=== PATIENT | male | born 1945 | race African-American/Black ===

== ENCOUNTER 2022-09-23 16:29 | Inpatient (IN) | payer MEDICARE, OTHER ==
[~2022-09-23] VITALS: Ht 180.3 cm; Wt 71.2 kg
--- NOTE | 2022-09-23 16:41 | NUR ---
Vikash valdivia in [facility] - 09/23/22 at 1651 by DELGADO [email or web address], medical screening exam in progress
--- NOTE | 2022-09-23 16:52 | NUR ---
[email or web address], medical screening exam in progress.
[2022-09-23] MEDS ORDERED: QUET25TA PO (16:53)
[2022-09-23] MEDS ORDERED: AMLO-212 PO (16:53)
[2022-09-23] MEDS ORDERED: ESCI10TA PO (16:53)
[2022-09-23] MEDS ORDERED: DONE10TA44 PO (16:53)
--- NOTE | 2022-09-23 17:14 | NUR ---
Water to drink was given, pending urine specimen at this time. Patient's daughter Donna is at bedside.
[2022-09-23 17:42] LABS: HEMATOCRIT 40.2 % (36.7-47.1); MEAN CORPUSCULAR HEMOGLOBIN 29.7 uug (23.8-33.4); MEAN CORPUSCULAR VOLUME 88.6 fL (73.0-96.2); PLATELET COUNT (AUTO) 155 K/uL (152-348)
[2022-09-23 17:45] LABS: CARBON DIOXIDE 30 mmol/L (21-32); CHLORIDE 107 mmol/L (98-107); CREATININE 1.5 mg/dL (0.6-1.3); GLUCOSE 104 mg/dL (74-106); POTASSIUM 3.4 mmol/L (3.5-5.1); UREA NITROGEN, BLOOD 21 mg/dL (7-18)
[2022-09-23 17:49] LABS: ACETAMINOPHEN < 2.0 ug/mL (10-30)
[2022-09-23 17:50] LABS: ALANINE AMINOTRANSFERASE 23 U/L (16-63); ALKALINE PHOSPHATASE 76 U/L (50-136); ASPARTATE AMINOTRANSFERASE 20 U/L (15-37); TOTAL PROTEIN, SERUM 6.7 g/dL (6.4-8.2)
[2022-09-23 17:52] LABS: ETHANOL < 3 MG/DL (0-0)
--- NOTE | 2022-09-23 18:35 | NUR ---
2 RNs attempted straight urine catheterization but the czech 14 urine straight catheter is too flexible. Silicone urine catheter inserted by SUSHMA Cardenas, pending urine specimen at this time. Hot dinner tray was provided.
[2022-09-23] MEDS ORDERED: IV NORMAL SALINE 1000 ML BAG IV ONE ×2 (18:45→20:00)
--- NOTE | 2022-09-23 18:47 | NUR ---
Patient is eating dinner with very good appetite. IV line will be started after patient finishes eating dinner.
--- NOTE | 2022-09-23 19:11 | NUR ---
insurance processor Patrcie at bedside, psych evaluation in progress.
--- NOTE | 2022-09-23 19:20 | NUR ---
Patient placed on 51/50 hold by Patrice Houston for grave disability and danger to self
[2022-09-23 20:10] LABS: *BLOOD, URINE 2+ (NEGATIVE); *COLOR,URINE YELLOW (YELLOW); *KETONES,URINE TRACE (NEGATIVE); LEUKOCYTE ESTERASE ,URINE NEGATIVE (NEGATIVE); NITRITE, URINE NEGATIVE (NEGATIVE); UGLUCOSE NEGATIVE (NEGATIVE)
[2022-09-23 20:12] LABS: *BILIRUBIN,URIN 1+ (NEGATIVE); *CLARITY,URINE HZY (CLEAR)
--- NOTE | 2022-09-23 20:16 | NUR ---
Patient assigned to room 145C
[2022-09-23 20:19] LABS: *AMPHETAMINE, URINE NEGATIVE (NEGATIVE); *CANNABINOID, URINE NEGATIVE (NEGATIVE); *COCCAINE, URINE NEGATIVE (NEGATIVE); *PHENCYCLIDINE SCREEN,URINE NEGATIVE (NEGATIVE)
[2022-09-23 20:34] LABS: BACTERIA,URINE FEW /HPF (NONE SEEN); SQUAMOUS EPITHELIAL CELL,UR NONE SEEN /HPF (NONE SEEN); WBC,URINE 0-3 /HPF (0-3)
--- NOTE | 2022-09-23 20:47 | NUR ---
report given to Kunal PUTNAM
--- NOTE | 2022-09-23 21:10 | NUR ---
Pt. admitted to [facility] room 145C , under care of Dr. Faye Belongs List completed Kunal SCHMIDT and Jarret RN aware of patient's arrival
[2022-09-23 21:15] VITALS: BP 157/103
[2022-09-23] MEDS: LORAZEPAM 1 MG TABLET PO PRN (22:48)
[2022-09-23] MEDS ORDERED: ACETAMINOPHEN 325 MG TABLET PO PRN (23:00)
[2022-09-23] MEDS ORDERED: MAG HYDROX/AL HYDROX/SIMETH 30 ML LIQUID UDC PO PRN (23:00)
[2022-09-23] MEDS ORDERED: BLOOD SUGAR DIAGNOSTIC 1 EACH STRIP VI ONE (23:00)
--- NOTE | 2022-09-23 23:48 | NUR ---
Admission Note: Received 77 y/o male on a 5150 hold d/t being GD and a DTS, brought in via ER staff on . Patient was on the streets after being found missing by his daughter whom lives with him. Patient has a history of wandering away from his home and getting lost/not being able to find his way back home. Patient was also becoming aggressively angered with those he ran into on the streets trying to help him. Per daughter's statement, pt has also been unable to care for himself and is refusing care from his daughter/family. He will be in the care of psychiatrist Neyda, and State Farm Agent Apple. Upon face to face assessment, pt was AOx1, confused, disoriented, forgetful, and unkept. Although calm and cooperative, pt was a poor historian, had poor concentration, had extreme difficulty following directions, and needed constant reminding, re-direction and reassurance. He was self-ambulatory x1 minimal assist for safety. Patient was given his advisement, patient's handbook, and was left at on his bedside table. Pt was briefly given a tour of the unit and it's rules. Contraband and other belongings were collected for safe keeping. Pertaining safety measures implemented.
[2022-09-24] MEDS: CLONIDINE HCL 0.1 MG TABLET PO PRN (04:32)
[2022-09-24 07:52] LABS: CREATININE 1.2 mg/dL (0.6-1.3); POTASSIUM 3.3 mmol/L (3.5-5.1)
[2022-09-24 08:03] VITALS: BP 102/72
[2022-09-24] MEDS: AMLODIPINE 5 MG TABLET PO SCH (09:41)
[2022-09-24] MEDS: ESCITALOPRAM OXALATE 10 MG TABLET PO SCH (11:17)
[2022-09-24] MEDS: MEMANTINE HCL 5 MG TABLET PO SCH ×2 (11:17→20:10)
[2022-09-24] MEDS ORDERED: POTASSIUM CHLORIDE 20 MEQ TAB.PRT.SR PO ONE (12:00)
--- NOTE | 2022-09-24 12:47 | NUR ---
SHIFT NOTE: PT IS ALERT AND ORIENTED X3 AMBULATORY WITH OBSERVATION NO SIGNS OF DISTRESS NOTED. OBSERVED PT FOR AWOL RISK. PT IS COMPLIANT WITH MEDICATION DR JOSEPH ORDERED POTASSIUM 20MEQ PO POTASSIUM IS LOW 3.1 NO SIGNS OF RESPIRATORY DISTRESS NOTED. NO ADVERSE REACTION FROM MEDICATION NOTED. PT EATING CARE OF HIMSELF. Addendum: 09/24/22 at 1255 by [address] [facility] INPATIENT RN28 RN PT NEEDS ASSISTANCE WITH ADL BUT NOT WITH FEEDING HIMSELF.
--- NOTE | 2022-09-24 12:56 | NUR ---
PT IS ON A 72 HOUR HOLD WILL CONTINUE TO MONITOR FOR SAFETY. Addendum: 09/24/22 at 1257 by REGISTRY [facility] INPATIENT RN28 RN 72 HOUR HOLD FOR GD AND DTS.
--- NOTE | 2022-09-24 14:21 | NUR ---
Firearms Report: Washery Engineer completed and submitted a [employer] firearms report for 5150 a danger to himself and grave disability certifications. A copy of report has been placed in patient chart.
--- NOTE | 2022-09-24 14:21 | NUR ---
CHAKA Initial Discharge Note: Pt currently resides at home with his daughter/DPOA, Donna ([phone]) located at [address] [place] [address]. Donna stated that she can no longer care for the pt at home. Donna informed this SW that she is actively looking for a intermediate facility in [place]. Donna is also agreeable with this SW and the psychiatrist's intermediate facility recommendations for continuation of care. CHAKA will continue to work with pt, Donna and to ensure a safe and proper discharge plan.
--- NOTE | 2022-09-24 14:22 | NUR ---
SW Family/DPOA Contact: SW spoke with pt's daughter/DPOA, Donna ([phone]) who resides at [address] [place] [address]. Donna stated that she can no longer care for the pt at home. Donna informed this SW that she is actively looking for a chcf facility in [place]. Donna is also agreeable with this SW and the psychiatrist's chcf facility recommendations for continuation of care.
[2022-09-24 16:34] VITALS: BP 129/78
[2022-09-24 19:58] VITALS: BP 101/55
[2022-09-24] MEDS: DONEPEZIL 5 MG TABLET PO SCH (20:10)
[2022-09-24] MEDS: QUETIAPINE FUMARATE 25 MG TABLET PO SCH (20:10)
--- NOTE | 2022-09-24 20:43 | NUR ---
GPS: Pt.is confused,forgetful and disoriented. Insight and judgment is impaired. Took bedtime meds.without any issues. Safe environment provided.Re-directed prn.
--- NOTE | 2022-09-25 06:15 | NUR ---
GPS: Pt.slept 7 hrs.last night. Showered earlier with assistance from staff. Remains confused,disoriented and forgetful. Reality re-orientation provided prn. Safety checks Q15 minutes for safety. Needs attended. Will continue to monitor.
[2022-09-25 07:47] LABS: HEMATOCRIT 38.2 % (36.7-47.1); MEAN CORPUSCULAR HEMOGLOBIN 30.5 uug (23.8-33.4); MEAN CORPUSCULAR VOLUME 88.7 fL (73.0-96.2); PLATELET COUNT (AUTO) 142 K/uL (152-348)
[2022-09-25 08:00] VITALS: BP 105/70
[2022-09-25 08:04] LABS: BILIRUBIN,TOTAL 1.1 mg/dL (0.2-1.0); CREATININE 1.2 mg/dL (0.6-1.3); PHOSPHOROUS 2.9 mg/dL (2.5-4.9); POTASSIUM 4.2 mmol/L (3.5-5.1); TOTAL PROTEIN, SERUM 6.4 g/dL (6.4-8.2)
[2022-09-25 08:13] LABS: THYROID STIMULATING HORMONE 1.269 mIU/mL (0.358-3.740)
[2022-09-25] MEDS: ESCITALOPRAM OXALATE 10 MG TABLET PO SCH (08:47)
[2022-09-25] MEDS: MEMANTINE HCL 5 MG TABLET PO SCH ×2 (08:48→20:11)
[2022-09-25] MEDS: AMLODIPINE 5 MG TABLET PO SCH (08:48)
--- NOTE | 2022-09-25 15:10 | NUR ---
Patient is confused, wanders in the hallway, stands by the front door to leave the unit, risk for AWOL, forgetful about what he has to say, cooperative with nursing care. Patient ambulates without assistance and requires minimal assistance with ADL. Patient needs lots of redirection and prompts. Reality orientation provided. Fall and safety precautions implemented.
[2022-09-25 16:36] VITALS: BP 136/92
[2022-09-25 20:07] VITALS: BP 124/78
[2022-09-25] MEDS: DONEPEZIL 5 MG TABLET PO SCH (20:11)
[2022-09-25] MEDS: QUETIAPINE FUMARATE 25 MG TABLET PO SCH (20:11)
[2022-09-25] MEDS: ATORVASTATIN 10 MG TABLET PO SCH (20:11)
--- NOTE | 2022-09-26 06:49 | NUR ---
GPS: Remains confused,forgetful. Reality re-orientation provided. Needs frequent re-direction from staff. No aggressive behavior noted. Med.compliant. Fall/AWOL precautions observed. Pt.slept 6 hrs.last night.
[2022-09-26 08:00] VITALS: BP 138/94
[2022-09-26] MEDS: MEMANTINE HCL 5 MG TABLET PO SCH ×2 (08:46→20:35)
[2022-09-26] MEDS: ESCITALOPRAM OXALATE 10 MG TABLET PO SCH (08:47)
--- NOTE | 2022-09-26 11:27 | NUR ---
Patient walking around, stated, "I like to walk it keeps me active", patient denies SI/.HI/VH/AH, medication compliant, patient is currently free from pain or any discomforts. Emotional support provided. Fall and safety precautions implemented. Patient contract for safety.
[2022-09-26 14:06] LABS: A/G RATIO 1.1 (0.7-1.7); ALBUMIN 3.1 g/dL (2.9-4.4); ALPHA-1-GLOBULIN 0.2 g/dL (0.0-0.4); ALPHA-2-GLOBULIN 0.5 g/dL (0.4-1.0); BETA GLOBULIN 0.9 g/dL (0.7-1.3); GAMMA GLOBULIN 1.2 g/dL (0.4-1.8); GLOBULIN, TOTAL 2.7 g/dL (2.2-3.9); M-SPIKE 0.2 g/dL (Not Observed)
[2022-09-26 16:12] VITALS: BP 116/77
[2022-09-26 20:23] VITALS: BP 156/100
[2022-09-26] MEDS: LORAZEPAM 1 MG TABLET PO PRN (20:35)
[2022-09-26] MEDS: QUETIAPINE FUMARATE 25 MG TABLET PO SCH (20:35)
[2022-09-26] MEDS: DONEPEZIL 5 MG TABLET PO SCH (20:35)
[2022-09-26] MEDS: ATORVASTATIN 10 MG TABLET PO SCH (20:35)
--- NOTE | 2022-09-27 00:40 | NUR ---
AOx1, patient is overall confused and disoriented. Struggles to follow directions. Is hard to re-direct. Overall polite, but currently incapable of providing self care. Pt needs x1 or x2 assist with ambulation. Unsteady gait and balance. Fall Risk. Safety measures carried out. Will continue to monitor.
[2022-09-27 08:00] VITALS: BP 163/79
[2022-09-27] MEDS: MEMANTINE HCL 5 MG TABLET PO SCH ×2 (09:07→20:11)
[2022-09-27] MEDS: ESCITALOPRAM OXALATE 10 MG TABLET PO SCH (09:07)
--- NOTE | 2022-09-27 11:34 | NUR ---
Nursing, Confused, disoriented, wanders around, goes room to room, constantly neded redirections. Encouraged participation in her group activities, meds compliant, AWOL risk, pushing , checking doors Constantly needing reorientation . monitor needs , safety emphasized
[2022-09-27 15:55] VITALS: BP 130/97
--- NOTE | 2022-09-27 16:54 | NUR ---
Gps/Paint Spray Inspector- Patient noted making his bed, , orientation x 1-2 aware he is in the hospital but does not know the name. Calling Nurse,Nurse when needing some help. Tends to wander around , pacing around , had been redirectable , quiet.
[2022-09-27] MEDS: ATORVASTATIN 10 MG TABLET PO SCH (20:11)
[2022-09-27] MEDS: QUETIAPINE FUMARATE 25 MG TABLET PO SCH (20:11)
[2022-09-27] MEDS: DONEPEZIL 5 MG TABLET PO SCH (20:11)
[2022-09-27 21:16] VITALS: BP 137/96
[2022-09-27] MEDS: LORAZEPAM 1 MG TABLET PO PRN (21:44)
--- NOTE | 2022-09-27 21:46 | NUR ---
GPS: Pt.is anxious,confused,disoriented and disorganized. Insight and judgment is impaired. Med.compliant. No aggressive behavior noted. Safety checks done Q15 minutes and prn to ensure pt's safety and whereabouts. Denies pain. Ativan 1mg given PO for anxiety. Will monitor effectiveness.
[2022-09-28] MEDS: ZOLPIDEM 5 MG TABLET PO PRN ×2 (00:33→23:11)
[2022-09-28 07:13] VITALS: BP 107/83
[2022-09-28] MEDS: ESCITALOPRAM OXALATE 10 MG TABLET PO SCH (08:47)
[2022-09-28] MEDS: MEMANTINE HCL 5 MG TABLET PO SCH ×2 (08:47→20:55)
--- NOTE | 2022-09-28 15:22 | NUR ---
Patient is pleasantly confused, sociable, forgetful, disoriented, disorganized, intrusive going to other patient's rooms, quiet most of the time, smiley, following directions, compliant with medications. Patient is encourage to verbalize needs. Fall and safety precautions implemented.
--- NOTE | 2022-09-28 16:25 | NUR ---
Patient had [address] today, zinc plate grainer Silas Bright gave probable cause for GD only.
[2022-09-28 16:38] VITALS: BP 122/83
[2022-09-28 20:36] VITALS: BP 132/75
[2022-09-28] MEDS: DONEPEZIL 5 MG TABLET PO SCH (20:55)
[2022-09-28] MEDS: ATORVASTATIN 10 MG TABLET PO SCH (20:55)
[2022-09-28] MEDS: QUETIAPINE FUMARATE 25 MG TABLET PO SCH (20:55)
--- NOTE | 2022-09-29 04:21 | NUR ---
Received pt in Dinning room Restless Anxious, Pacing up and down dinning room and hallway, going into other pt rooms,Pt is AWOL risk, trying to open the doors to leave.Pt is confused forgetful, disoriented,disorganized and unkept appearance. Pt is compliant with medications and nursing care. Pt is redirectable and needs stand by assistance with ADLs. Pt is unable to formulate a bailable plan of care. Safety precautions put on place. Pt slept well, no distress noted continue to monitor for safety continue with treatment plan.
[2022-09-29 08:04] VITALS: BP 172/101
[2022-09-29] MEDS: MEMANTINE HCL 5 MG TABLET PO SCH ×2 (08:14→20:27)
[2022-09-29] MEDS: ESCITALOPRAM OXALATE 10 MG TABLET PO SCH (08:14)
[2022-09-29] MEDS: CLONIDINE HCL 0.1 MG TABLET PO PRN (08:15)
--- NOTE | 2022-09-29 08:30 | NUR ---
Alert oriented 2-3, calm, compliant with care and taking of medication. Independent with meal. Incontinent, assisted in changing pull-ups.
[2022-09-29 10:56] LABS: HEMATOCRIT 36.8 % (36.7-47.1); MEAN CORPUSCULAR HEMOGLOBIN 29.8 uug (23.8-33.4); MEAN CORPUSCULAR VOLUME 89.1 fL (73.0-96.2); PLATELET COUNT (AUTO) 140 K/uL (152-348)
[2022-09-29 11:09] LABS: ALANINE AMINOTRANSFERASE 17 U/L (16-63); ALKALINE PHOSPHATASE 62 U/L (50-136); ASPARTATE AMINOTRANSFERASE 13 U/L (15-37); BILIRUBIN,TOTAL 0.9 mg/dL (0.2-1.0); CARBON DIOXIDE 30 mmol/L (21-32); CHLORIDE 109 mmol/L (98-107); CREATININE 1.1 mg/dL (0.6-1.3); GLUCOSE 106 mg/dL (74-106); POTASSIUM 3.6 mmol/L (3.5-5.1); TOTAL PROTEIN, SERUM 5.8 g/dL (6.4-8.2); UREA NITROGEN, BLOOD 25 mg/dL (7-18)
--- NOTE | 2022-09-29 13:49 | NUR ---
Awake, went to the activity room, had lunch. Calm when redirected.
[2022-09-29 16:00] VITALS: BP 158/105
--- NOTE | 2022-09-29 16:00 | NUR ---
Awake, restless, ambulating in the hallway, forgetful of room, wandering to other room. Redirected. Incontinence care done. Snacks provided. Assisted to activity room to watch TV
--- NOTE | 2022-09-29 17:28 | NUR ---
Eating dinner in his room.
[2022-09-29 20:11] VITALS: BP 98/67
[2022-09-29] MEDS: QUETIAPINE FUMARATE 25 MG TABLET PO SCH (20:27)
[2022-09-29] MEDS: ATORVASTATIN 10 MG TABLET PO SCH (20:27)
[2022-09-29] MEDS: DONEPEZIL 5 MG TABLET PO SCH (20:27)
--- NOTE | 2022-09-30 05:50 | NUR ---
Received pt pacing up and down in hallway. Pt is confused, Anxious and forgetful, going into other pt rooms, Pt is AWOL risk and is constantly trying to open the doors to leave. Pt is compliant with medications, nursing care and needs assistance with ADLs. Pt needs to be constantly reminded where hi room is or he will be going into other patients room. Pt slept well without sleeping PRN. No distress noted. Continue to monitor for safety . Continue with treatment plan.
[2022-09-30 08:13] VITALS: BP 158/92
[2022-09-30] MEDS: ESCITALOPRAM OXALATE 10 MG TABLET PO SCH (08:24)
[2022-09-30] MEDS: MEMANTINE HCL 5 MG TABLET PO SCH ×2 (08:24→21:26)
--- NOTE | 2022-09-30 14:56 | NUR ---
Patient is calm, cooperative with nursing care, compliant with medications, forgetful, confused, intrusive going to peers rooms and nursing station, needs prompts and redirection, pleasant, smiley. Patient tries AWOL and stands next to the door waiting for an opportunity to get out. Patient ambulates without assistance, incontinent. Patient is encourage to vent feelings and emotions. Fall and safety precautions implemented.
[2022-09-30 16:21] VITALS: BP 138/85
[2022-09-30 20:16] VITALS: BP 152/85
[2022-09-30] MEDS: DONEPEZIL 5 MG TABLET PO SCH (21:26)
[2022-09-30] MEDS: ATORVASTATIN 10 MG TABLET PO SCH (21:26)
[2022-09-30] MEDS: LORAZEPAM 1 MG TABLET PO PRN (21:26)
[2022-09-30] MEDS: QUETIAPINE FUMARATE 25 MG TABLET PO SCH (21:26)
--- NOTE | 2022-10-01 01:46 | NUR ---
AOx1 patient is still showing difficulty following directions. Repeated explanation and education needed for patient compliance. Confused and disoriented, extra time and care is needed. Self ambulatory, yet need to wear diapers/pull-ups d/t accidental wetting and/or soiling. Safety measure implemented.
[2022-10-01 08:24] VITALS: BP 150/95
[2022-10-01] MEDS: MEMANTINE HCL 5 MG TABLET PO SCH ×2 (10:09→22:03)
[2022-10-01] MEDS: ESCITALOPRAM OXALATE 10 MG TABLET PO SCH (10:09)
--- NOTE | 2022-10-01 15:20 | NUR ---
CHAKA Family/DPOA Contact: CHAKA spoke with pt's daughter/DPOA, Donna ([phone]) who stated that she would like the pt to discharge to a SNF in [facility]. CHAKA will continue to work with Donna to help ensure pt has a safe and proper discharge plan.
[2022-10-01 16:48] VITALS: BP 129/79
--- NOTE | 2022-10-01 18:22 | NUR ---
SHIFT NOTE: RECEIVED REPORT FROM AM NURSE EVERETT PT IS ALERT AND ORIENTEDX 2-3 PT AT BREAKFAST IN ROOM BUT ATE LUNCH AND DINNER IN DINING AREA WHILE WATCHING TV. NO SIGNS OF AGGRESSION NOTED. PT SOILED PANTS AND TOOK OFF PANTS AND PUT ON TOWEL. ASSISTED PT WITH PULL UP AND DRY CLOTHES ALONG WITH SOCK AND SHOES. PT WENT BACK IN DINING AREA WATCHING TV. PT TOOK AM MEDICATION NO SIGNS OF ADVERSE REACTION NOTED. WILL CONTINUE TO MONITOR FOR SAFETY NO SIGNS OF RESPIRATORY DISTRESS NOTED. NO SIGNS OF PT WANTING TO HARM HIMSELF NOW HE KEEPS HIMSELF WELL GROOM WITH ASSISTANCE FROM NURSE AND OTHER STAFF MEMBERS.`WILL ENDORSE HS NURSE. FALL AND SAFETY MAINTAINED WILL CONTINUE TO MONITOR FOR SAFETY.
[2022-10-01 20:29] VITALS: BP 155/95
[2022-10-01] MEDS: DONEPEZIL 5 MG TABLET PO SCH (22:03)
[2022-10-01] MEDS: QUETIAPINE FUMARATE 25 MG TABLET PO SCH (22:03)
[2022-10-01] MEDS: ATORVASTATIN 10 MG TABLET PO SCH (22:03)
[2022-10-01] MEDS: LORAZEPAM 1 MG TABLET PO PRN (22:03)
--- NOTE | 2022-10-01 23:12 | NUR ---
Pt was wandering the unit aimlessly communicating with staff and other patients with flight of idea type statements. Pt still noted to have difficulty following directions even though he continues to state that he understands what this nurse and other staff is trying to communicate to him. Repeated education and assurance helps for patient to continue with being compliant with care. Mainly AOx1, at best AOx2. Safety measures carried out. Will continue to monitor.
[2022-10-02 08:08] VITALS: BP 151/85
[2022-10-02] MEDS: MEMANTINE HCL 5 MG TABLET PO SCH ×2 (08:17→20:16)
[2022-10-02] MEDS: ESCITALOPRAM OXALATE 10 MG TABLET PO SCH (08:17)
--- NOTE | 2022-10-02 14:16 | NUR ---
CHAKA Family/DPOA Contact: CHAKA spoke with pt's daughter/DPOA, Donna ([phone]) in person regarding pt's treatment and discharge plan. Donna is aware that pt does not have a discharge date yet. CHAKA is currently working on SNF placement in [facility] for pt's continuation of care plan. Donna is grateful for the help and appreciative to the team.
[2022-10-02 16:09] VITALS: BP 121/77
--- NOTE | 2022-10-02 18:16 | NUR ---
Received pt in room awake.Pt continues to be compliant with carre and medication. Pt is confused, disorganized and forgetful. pt needs maximal assistance with ADLs.Pt forgets his room number and wanders into other patients rooms . pt is redirectable and follows directions with prompting.Reassurance provided. safety precautions put in place for safety and AWOL risk. Continue to monitor for safety , continue with treatment plan.
[2022-10-02] MEDS: LORAZEPAM 1 MG TABLET PO PRN (19:55)
[2022-10-02 19:56] VITALS: BP 148/78
[2022-10-02] MEDS: ATORVASTATIN 10 MG TABLET PO SCH (20:16)
[2022-10-02] MEDS: QUETIAPINE FUMARATE 25 MG TABLET PO SCH (20:16)
[2022-10-02] MEDS: DONEPEZIL 5 MG TABLET PO SCH (20:16)
[2022-10-03 08:16] VITALS: BP 98/67
[2022-10-03] MEDS: QUETIAPINE FUMARATE 25 MG TABLET PO SCH ×2 (09:09→20:00)
[2022-10-03] MEDS: ESCITALOPRAM OXALATE 10 MG TABLET PO SCH (09:10)
[2022-10-03] MEDS: MEMANTINE HCL 5 MG TABLET PO SCH ×2 (09:10→20:00)
[2022-10-03 16:00] VITALS: BP 106/77
--- NOTE | 2022-10-03 18:16 | NUR ---
Received pt in room awake.Pt continues to be compliant with carre and medication. Pt is confused, disorganized and forgetful. pt needs maximal assistance with ADLs.Pt forgets his room number and wanders into other patients rooms .Pt goes to his room and takes covers from beds and starts folding the linen pt is redirectable and follows directions with prompting.Reassurance provided. safety precautions put in place for safety and AWOL risk. Continue to monitor for safety , continue with treatment plan.
[2022-10-03] MEDS: DONEPEZIL 5 MG TABLET PO SCH (20:00)
[2022-10-03] MEDS: ATORVASTATIN 10 MG TABLET PO SCH (20:00)
[2022-10-03] MEDS: ZOLPIDEM 5 MG TABLET PO PRN (22:01)
[2022-10-03 22:26] VITALS: BP 104/69
--- NOTE | 2022-10-04 06:30 | NUR ---
GPS: Remain confused and disoriented most of the shift. slept 6.30 hrs through the night.
[2022-10-04 08:00] VITALS: BP 133/91
[2022-10-04] MEDS: ESCITALOPRAM OXALATE 10 MG TABLET PO SCH (09:10)
[2022-10-04] MEDS: MEMANTINE HCL 5 MG TABLET PO SCH ×2 (09:10→21:17)
[2022-10-04] MEDS: QUETIAPINE FUMARATE 25 MG TABLET PO SCH ×2 (09:10→21:19)
--- NOTE | 2022-10-04 12:54 | NUR ---
Gps/Grain Unloader Machine- Daughter in to visit, was able to talked to the plate worker / Interacting fairly well, tends to wander around but had been redirectable
--- NOTE | 2022-10-04 14:37 | NUR ---
CHAKA Family/DPOA Contact: CHAKA spoke with pt's daughter/DPOA, Donna ([phone]) in person regarding pt's treatment and discharge plan. Donna is aware that pt is accepted to [facility] ([phone]) located at [address] [place] [id number]. However, Donna would like pt to discharge to [facility] upon discharge. CHAKA faxed clinicals to Rafael at [phone] and awaiting response. Donna asked CHAKA to contact Morgan from [facility] ([phone]) who is helping with pt's placement at [facility] [phone]. CHAKA also faxed clinicals to Morgan who stated he will be in touch with this screenplay writer and Donna. CHAKA will continue to update Donna as pt has an anticipated discharge for Saturday/Saturday. Donna and Morgan are aware.
[2022-10-04 15:00] VITALS: BP 114/74
[2022-10-04 21:04] VITALS: BP 115/78
[2022-10-04] MEDS: DONEPEZIL 5 MG TABLET PO SCH (21:17)
[2022-10-04] MEDS: ATORVASTATIN 10 MG TABLET PO SCH (21:17)
[2022-10-04] MEDS: ZOLPIDEM 5 MG TABLET PO PRN (22:09)
--- NOTE | 2022-10-05 05:12 | NUR ---
Received pt in dinning room watching TV, but then started pacing up and down the hallway.Pt continues to be compliant with carre and medication. Pt is confused, disorganized and forgetful. pt needs maximal assistance with ADLs.Pt forgets his room number and wanders into other patients rooms .Pt goes to his room and takes covers from beds and starts folding the linen pt is redirectable and follows directions with prompting.Reassurance provided. Pt received a sleeping PRN for sleeping. Diaper was changed alar on. Pt slept for 6hr and 45min. safety precautions put in place for safety and AWOL risk. Continue to monitor for safety , continue with treatment plan.
[2022-10-05 08:02] VITALS: BP 155/99
[2022-10-05] MEDS: MEMANTINE HCL 5 MG TABLET PO SCH ×2 (08:22→20:43)
[2022-10-05] MEDS: QUETIAPINE FUMARATE 25 MG TABLET PO SCH ×2 (08:23→20:43)
[2022-10-05] MEDS: ESCITALOPRAM OXALATE 10 MG TABLET PO SCH (08:27)
--- NOTE | 2022-10-05 13:54 | NUR ---
SW Discharge Update: SW to contacted Morgan from [facility] ([phone]) who is helping with pt's placement at [facility] in [place] [phone] and spoke with Sarah who took a message for this SW. SW left a message asking if there are any updates regarding pt's acceptance to [facility] on Saturday next week. SW will follow-up.
--- NOTE | 2022-10-05 13:58 | NUR ---
CHAKA Family/DPOA Contact: CHAKA contacted pt's daughter/DPOA, Donna ([phone]) and left a voicemail stating that this SW left a message for Morgan from [facility] [phone] asking about pt's discharge update to [facility] [phone]. CHAKA will follow-up.
[2022-10-05 15:22] VITALS: BP 150/92
--- NOTE | 2022-10-05 18:10 | NUR ---
Gps/Feed And Farm Management Adviser- Right hip cleansed yung Ibarra applied secured w/foam Addendum: 10/06/22 at 1112 by SLADE RANGEL LVN charted on a wrong patient
[2022-10-05] MEDS: DONEPEZIL 5 MG TABLET PO SCH (20:43)
[2022-10-05] MEDS: ATORVASTATIN 10 MG TABLET PO SCH (20:43)
[2022-10-05 20:45] VITALS: BP 151/94
[2022-10-05] MEDS: ZOLPIDEM 5 MG TABLET PO PRN (22:32)
--- NOTE | 2022-10-06 05:40 | NUR ---
Pt is pleasantly confused, anxious, restless but redirectable. Pt ca not care for self and still needs maximal assistance with ADLs.Pt wanders in to nurse station and other patients rooms.Pt is compliant with medications.Pt took a sleeping PRN. diaper was changed and bed alarm on. Pt slept for 6hr and 15 min. Continue to monitor for safety. Continue with treatment plan.
[2022-10-06 07:47] VITALS: BP 110/79
[2022-10-06] MEDS: QUETIAPINE FUMARATE 25 MG TABLET PO SCH ×2 (09:17→20:48)
[2022-10-06] MEDS: MEMANTINE HCL 5 MG TABLET PO SCH ×2 (09:17→20:48)
[2022-10-06] MEDS: ESCITALOPRAM OXALATE 10 MG TABLET PO SCH (09:17)
--- NOTE | 2022-10-06 11:13 | NUR ---
Gps/Aerial Lineman- Confused, ambulatory ,wanders around kept picking on the trash , needed close supervision, redirected from time to time, meds compliant , set up with his hygiene. Compliant with routine meds., in and out of his group activity .
[2022-10-06 17:32] VITALS: BP 147/93
[2022-10-06] MEDS: LORAZEPAM 1 MG TABLET PO PRN (20:48)
[2022-10-06] MEDS: DONEPEZIL 5 MG TABLET PO SCH (20:48)
[2022-10-06] MEDS: ATORVASTATIN 10 MG TABLET PO SCH (20:48)
--- NOTE | 2022-10-07 04:43 | NUR ---
At start of shift, pt was found wandering the unit. Pt is AOx2 (name & place), and still needs continuous prompting into getting pt to follow directions. Pt is compliant with care and medications, just needs constant reminding and reinforcement. Pt eventually was aided to his bed, where he feel asleep for the rest of the shift. Safety measures in place. Will continue to monitor.
[2022-10-07 07:54] VITALS: BP 149/98
[2022-10-07] MEDS: MEMANTINE HCL 5 MG TABLET PO SCH ×2 (08:05→20:22)
[2022-10-07] MEDS: ESCITALOPRAM OXALATE 10 MG TABLET PO SCH (08:05)
[2022-10-07] MEDS: QUETIAPINE FUMARATE 25 MG TABLET PO SCH ×2 (08:05→20:23)
--- NOTE | 2022-10-07 14:35 | NUR ---
Gps/Medical Technician Assistant- Found patient kneeling down scrubbing the floor with a tissue paper, discouraged from doing it got up and redirected to his room . Also found picking up trash back and forth to his room
[2022-10-07 16:27] VITALS: BP 129/79
[2022-10-07 19:51] VITALS: BP 138/98
[2022-10-07] MEDS: DONEPEZIL 5 MG TABLET PO SCH (20:22)
[2022-10-07] MEDS: ATORVASTATIN 10 MG TABLET PO SCH (20:23)
[2022-10-07] MEDS: ZOLPIDEM 5 MG TABLET PO PRN (22:05)
--- NOTE | 2022-10-08 04:50 | NUR ---
Pt is pleasantly confused, anxious, restless but redirectable. Pt was pacing up and down the hallway, Pt urinated on the hallway floor and in his room. Pt is compliant with medications.Pt took a sleeping PRN. diaper was changed and bed alarm on.Continue to monitor for safety. Continue with treatment plan.
[2022-10-08] MEDS: MEMANTINE HCL 5 MG TABLET PO SCH ×2 (08:08→20:15)
[2022-10-08] MEDS: ESCITALOPRAM OXALATE 10 MG TABLET PO SCH (08:09)
[2022-10-08] MEDS: QUETIAPINE FUMARATE 25 MG TABLET PO SCH ×2 (08:09→20:15)
[2022-10-08 08:15] VITALS: BP 118/74
--- NOTE | 2022-10-08 09:46 | NUR ---
CHAKA Family/DPOA Contact: CHAKA contacted pt's daughter/DPOA, Donna ([phone]) and discussed pt's acceptance to [facility] per site safety coordinator, Lazaro. Donna is aware of pt's discharge via ambulance tomorrow 10/09/22.
--- NOTE | 2022-10-08 14:05 | NUR ---
GPS: Nursing Notes: Thought Disorder: Patient is awake and responding to his name, confused, disoriented, impaired judgment, poor insight, disorganized, forgetful, wandering around the unit aimlessly, unable to formulate a viable plan for self care, unkempt appearance, needs assistance with ADL's, continue to monitor for safety, continue with treatment plan.
[2022-10-08 16:27] VITALS: BP 112/64
[2022-10-08 18:18] LABS: ALANINE AMINOTRANSFERASE 24 U/L (16-63); ALKALINE PHOSPHATASE 94 U/L (50-136); ASPARTATE AMINOTRANSFERASE 22 U/L (15-37); BILIRUBIN,TOTAL 0.8 mg/dL (0.2-1.0); CARBON DIOXIDE 32 mmol/L (21-32); CHLORIDE 107 mmol/L (98-107); CREATININE 1.3 mg/dL (0.6-1.3); GLUCOSE 120 mg/dL (74-106); POTASSIUM 3.7 mmol/L (3.5-5.1); TOTAL PROTEIN, SERUM 6.8 g/dL (6.4-8.2); UREA NITROGEN, BLOOD 29 mg/dL (7-18)
[2022-10-08] MEDS: DONEPEZIL 5 MG TABLET PO SCH (20:15)
[2022-10-08] MEDS: ATORVASTATIN 10 MG TABLET PO SCH (20:15)
[2022-10-08] MEDS: LORAZEPAM 1 MG TABLET PO PRN (20:42)
[2022-10-08 20:57] VITALS: BP 107/68
--- NOTE | 2022-10-08 21:00 | NUR ---
GPS: Remains confused,disoriented and disorganized. Insight and judgment remains impaired. Wanders and needs frequent re-direction from staff. No aggressive behavior noted. Med.compliant. Safe environment provided.
[2022-10-09 08:00] VITALS: BP 197/110
[2022-10-09] MEDS: MEMANTINE HCL 5 MG TABLET PO SCH (08:17)
[2022-10-09] MEDS: ESCITALOPRAM OXALATE 10 MG TABLET PO SCH (08:17)
[2022-10-09] MEDS: QUETIAPINE FUMARATE 25 MG TABLET PO SCH (08:17)
[2022-10-09] MEDS: CLONIDINE HCL 0.1 MG TABLET PO PRN (08:18)
[2022-10-09] MEDS: LORAZEPAM 1 MG TABLET PO PRN (08:20)
[2022-10-09 09:30] VITALS: BP 105/64
--- NOTE | 2022-10-09 09:48 | NUR ---
CHAKA Discharge Note: Pt will be discharged to [facility] ([phone]) located at [address] [place] [address] via ambulance transportation at 11AM. CHAKA spoke with director life insurance, Lazaro ([phone]) at the facility who states they are ready to accept the patient today. CHAKA contacted pt's daughter/DPOA, Donna ([phone]) who is aware and agreeable with the discharge plan. Pt is alert and oriented x2, is unable to plan for self-care at this time. However, pt is willing to accept care at SNF. Pt denies any suicidal or homicidal ideation. Pt will follow-up at the facility with Psychiatrist, Dr. Montoya and Pilates Instructor, Dr. Lewis. Pt presents with calm mood and congruent affect. PHARMACY: [facility] ([phone]).
--- NOTE | 2022-10-09 12:00 | NUR ---
GPS: Nursing Notes: Discharge Notes: Patient is awake and responding to his name, compliant with his medications, cooperative with nursing care, wandering around the unit, forgetful, denies SI/HI, denies AH/VH, denies pain or discomfort, denies SOB. Patient discharge to [facility] [place] at [address] [place] [address] . Patient's daughter/JOHN Thompson informed of discharge by staff, report given to facility's admitting nurse - Marilee RN sales service supervisor, took all his belongings with him, transported to facility via ambulance. Patient will follow-up at the facility with Psychiatrist, Dr. Montoya and Board Of Education Secretary, Dr. Lewis for aftercare.
== END 2022-10-09 12:00 | DRG 885 ==
LOC: ER 16:52 → GPS 20:05
PROVIDERS: ADMIT Psychiatry & Neurology Psychiatry; ATTEND Internal Medicine
DX: F29 Unspecified psychosis not due to a substance or known physiological condition (principal); N17.0 Acute kidney failure with tubular necrosis; F03.918 Unspecified dementia, unspecified severity, with other behavioral disturbance; E44.1 Mild protein-calorie malnutrition; E87.0 Hyperosmolality and hypernatremia; E86.0 Dehydration; Z87.891 Personal history of nicotine dependence; Z85.048 Personal history of other malignant neoplasm of rectum, rectosigmoid junction, and anus; Z90.49 Acquired absence of other specified parts of digestive tract; E78.5 Hyperlipidemia, unspecified; E87.6 Hypokalemia; I10 Essential (primary) hypertension; Z20.822 Contact with and (suspected) exposure to COVID-19; E86.1 Hypovolemia; M19.90 Unspecified osteoarthritis, unspecified site; Z79.899 Other long term (current) drug therapy; F41.9 Anxiety disorder, unspecified; Z91.83 Wandering in diseases classified elsewhere; F32.A Depression, unspecified
CPT/HCPCS: 36415; 70450; 71045; 83735; 83970; 84100; 84153; 84155; 84165; 84443; 85025; 93005; A4663; C1758; G0480; J7040